=== PATIENT | female | born 1950 | race Caucasian/White ===

== ENCOUNTER 2018-01-04 09:35 | Emergency (ER) | payer MEDICARE ==
[~2018-01-04] VITALS: Ht 162.5 cm; Wt 68.5 kg
[2018-01-04] MEDS ORDERED: PREDNISONE20 M1 PO (09:41)
== END 2018-01-04 09:52 | disposition home or self-care (01) ==
LOC: ED 09:35
DX: L23.7 Allergic contact dermatitis due to plants, except food (principal); Z90.89 Acquired absence of other organs

== ENCOUNTER → 2018-02-10 | Outpatient (CLI) | payer MEDICARE ==
[~2018-02-10] MED LIST: PREDNISONE20 M1 PO
[2018-02-11 05:11] LABS: TOTAL PROTEIN, SERUM 6.2 g/dL (6.0-8.5)
[2018-02-11 08:44] LABS: IMMUNOGLOBULIN G, QNT 661 mg/dL (700-1600); IMMUNOGLOBULIN M, QNT 142 mg/dL (26-217)
[2018-02-13 17:08] LABS: ALBUMIN 4.1 g/dL (2.9-4.4); ALPHA-1-GLOBULIN 0.1 g/dL (0.0-0.4); ALPHA-2-GLOBULIN 0.6 g/dL (0.4-1.0); BETA GLOBULIN 0.7 g/dL (0.7-1.3); GAMMA GLOBULIN 0.6 g/dL (0.4-1.8); GLOBULIN, TOTAL 2.1 g/dL (2.2-3.9); M-SPIKE Not Observed g/dL (Not Observed)
[2018-02-28 16:51] LABS: ACHR (MUSCLE) BINDING AB SEE REFERENCE REPORT; ACHR GANGLIONIC NEURONAL AB SEE REFERENCE REPORT; AMPHIPHYSIN AB SEE REFERENCE REPORT; ANTI-GLIAL/NEUORONAL AB TYPE 1 SEE REFERENCE REPORT; ANTINEURONAL NUCLEAR AB TYPE 2 SEE REFERENCE REPORT; ANTINEURONAL NUCLEAR AB TYPE 3 SEE REFERENCE REPORT; CRMP-5-IGG SEE REFERENCE REPORT; N-TYPE CALCIUM CHANNEL AB SEE REFERENCE REPORT; NEURONAL VGKC AUTOANTIBODY SEE REFERENCE REPORT; P/Q-TYPE CALCIUM CHANNEL AB SEE REFERENCE REPORT; PURKINJE CELL CYTOPLASMIC AB 1 SEE REFERENCE REPORT; PURKINJE CELL CYTOPLASMIC AB 2 SEE REFERENCE REPORT; PURKINJE CELL CYTOPLASMIC AB T SEE REFERENCE REPORT; STRIATIONAL AB SEE REFERENCE REPORT
== END | disposition home or self-care (01) ==
LOC: LAB 13:02
PROVIDERS: Psychiatry & Neurology Neurology
DX: G60.9 Hereditary and idiopathic neuropathy, unspecified (principal)

== ENCOUNTER 2019-02-21 19:00 | Emergency (ER) | payer MEDICARE ==
[~2019-02-21] VITALS: Ht 162.5 cm; Wt 68.0 kg
[2019-02-21] MEDS ORDERED: BENADRYL25 M2 PO (19:13)
== END 2019-02-21 23:36 | disposition home or self-care (01) ==
LOC: ED 19:00
DX: S60.561A Insect bite (nonvenomous) of right hand, initial encounter (principal); Z79.899 Other long term (current) drug therapy; W57.XXXA Bitten or stung by nonvenomous insect and other nonvenomous arthropods, initial encounter; Y93.H2 Activity, gardening and landscaping; Y92.89 Other specified places as the place of occurrence of the external cause; Y99.8 Other external cause status

== ENCOUNTER → 2020-03-27 | Outpatient (CLI) | payer MEDICARE ==
[~2020-03-27] MED LIST changes: +BENADRYL25 M2 PO
== END | disposition home or self-care (01) ==
LOC: COVID19 08:40
PROVIDERS: ATTEND Family Medicine
DX: Z20.828 Contact with and (suspected) exposure to other viral communicable diseases (principal)

== ENCOUNTER 2021-03-27 19:28 | Emergency (ER) | payer MEDICARE ==
[2021-03-27] MEDS ORDERED: KENALOG 0.025%15 GM T (20:08)
== END 2021-03-27 20:06 | disposition home or self-care (01) ==
LOC: ED 19:28
DX: T63.441A Toxic effect of venom of bees, accidental (unintentional), initial encounter (principal); Y92.89 Other specified places as the place of occurrence of the external cause

== ENCOUNTER 2021-07-06 12:54 | Emergency (ER) | payer MEDICARE ==
[~2021-07-06] VITALS: Ht 162.5 cm; Wt 63.5 kg
[~2021-07-06 12:54] MED LIST changes: +KENALOG 0.025%15 GM T
[2021-07-06 13:47] LABS: BASO % 0.4 % (0.0-1.0); EOS # 0.2 10*3/uL (0.0-0.4); EOS % 2.3 % (1.0-4.0); HEMATOCRIT 37.9 % (37.0-47.0); LYMPH # 2.2 10*3/uL (1.3-4.4); LYMPH % 26.5 % (27.0-41.0); MEAN CORPUSCULAR HGB 30.8 pg (27.0-31.0); MEAN CORPUSCULAR HGB CONC 34.6 g/dl (33.0-37.0); MONO # 0.5 10*3/uL (0.1-1.0); MONO % 5.6 % (3.0-9.0); NEUT # 5.3 10*3/uL (2.3-7.9); PLATELET COUNT AUTOMATED 246 10*3/uL (130-400); RED BLOOD COUNT 4.26 10*6/uL (4.10-5.10); RED CELL DISTRI WIDTH 12.5 % (0-14.5); WHITE BLOOD COUNT 8.1 10*3/uL (4.8-10.8)
[2021-07-06 14:01] LABS: ALBUMIN 3.4 gm/dl (3.1-4.5); ALKALINE PHOSPHATASE 95 U/L (45-117); BUN 11 mg/dl (7-24); CHLORIDE 109 mmol/L (98-107); CREATININE 0.65 mg/dL (0.55-1.02); POTASSIUM 3.4 mmol/L (3.5-5.1); SGOT/AST 11 IU/L (3-35); SGPT/ALT 19 U/L (12-78); SODIUM 141 mmol/L (136-145); TOTAL PROTEIN 6.6 gm/dL (6.4-8.2)
== END 2021-07-06 16:13 | disposition home or self-care (01) ==
LOC: ED 12:54
PROVIDERS: Emergency Medicine
DX: R55 Syncope and collapse (principal); Z88.8 Allergy status to other drugs, medicaments and biological substances

== ENCOUNTER → 2021-07-07 | Outpatient (CLI) | payer MEDICARE | END | disposition home or self-care (01) | LOC: COVID19 16:10 | PROVIDERS: ATTEND Internal Medicine | DX: Z11.52 Encounter for screening for COVID-19 (principal) ==

== ENCOUNTER 2022-01-11 14:46 | Emergency (ER) | payer MEDICARE ==
[~2022-01-11] VITALS: Ht 162.5 cm; Wt 63.5 kg
[2022-01-11] MEDS ORDERED: Synthroid,Lev150 MCG PO (15:12)
[2022-01-11] MEDS ORDERED: LAMOTRIGINE150 MG PO (15:12)
[2022-01-11] MEDS ORDERED: OMEPRAZOLE40 MG PO (15:12)
[2022-01-11] MEDS ORDERED: PRISTIQ100 MG PO (15:13)
[2022-01-11] MEDS ORDERED: QUETIAPINE FUM300 M1 PO (15:14)
== END 2022-01-11 19:10 | disposition home or self-care (01) ==
LOC: ED 14:46
DX: S06.0X0A Concussion without loss of consciousness, initial encounter (principal); Z88.8 Allergy status to other drugs, medicaments and biological substances; W22.8XXA Striking against or struck by other objects, initial encounter; Y93.89 Activity, other specified; Y92.89 Other specified places as the place of occurrence of the external cause; Y99.8 Other external cause status

== ENCOUNTER → 2022-06-16 | Outpatient (CLI) | payer MEDICARE ==
[~2022-06-16] MED LIST changes: +LAMOTRIGINE150 MG PO; +OMEPRAZOLE40 MG PO; +PRISTIQ100 MG PO; +QUETIAPINE FUM300 M1 PO; +Synthroid,Lev150 MCG PO
== END | disposition home or self-care (01) ==
LOC: RESCLI 00:25
PROVIDERS: ATTEND Internal Medicine
DX: F32.9 Major depressive disorder, single episode, unspecified (principal); K21.9 Gastro-esophageal reflux disease without esophagitis; E03.9 Hypothyroidism, unspecified; R53.83 Other fatigue; Z90.710 Acquired absence of both cervix and uterus; Z98.890 Other specified postprocedural states; Z90.12 Acquired absence of left breast and nipple; Z88.8 Allergy status to other drugs, medicaments and biological substances; Z79.899 Other long term (current) drug therapy

== ENCOUNTER 2023-01-30 16:19 | Emergency (ER) | payer MEDICARE ==
[~2023-01-30] VITALS: Ht 162.5 cm; Wt 63.5 kg
== END 2023-01-30 16:41 | disposition home or self-care (01) ==
LOC: ED 16:19
DX: S50.862A Insect bite (nonvenomous) of left forearm, initial encounter (principal); Z88.8 Allergy status to other drugs, medicaments and biological substances; Z79.899 Other long term (current) drug therapy; Z90.89 Acquired absence of other organs; W57.XXXA Bitten or stung by nonvenomous insect and other nonvenomous arthropods, initial encounter; Y93.89 Activity, other specified; Y92.89 Other specified places as the place of occurrence of the external cause; Y99.8 Other external cause status

== ENCOUNTER → 2023-08-31 | Outpatient (CLI) | payer MEDICARE | END | disposition home or self-care (01) | LOC: RESCLI 01:10 | PROVIDERS: ATTEND Internal Medicine | DX: E03.9 Hypothyroidism, unspecified (principal); K21.9 Gastro-esophageal reflux disease without esophagitis; F32.9 Major depressive disorder, single episode, unspecified; M25.50 Pain in unspecified joint; I10 Essential (primary) hypertension; Z79.899 Other long term (current) drug therapy; Z88.8 Allergy status to other drugs, medicaments and biological substances; Z98.890 Other specified postprocedural states; Z82.49 Family history of ischemic heart disease and other diseases of the circulatory system ==

== ENCOUNTER 2023-12-05 14:31 | Emergency (ER) | payer MEDICARE ==
[~2023-12-05] VITALS: Ht 162.5 cm; Wt 65.8 kg
[2023-12-05] MEDS ORDERED: TRAMADOL HCL50 MG PO (17:12)
== END 2023-12-05 17:27 | disposition home or self-care (01) ==
LOC: ED 14:31
DX: S82.832A Other fracture of upper and lower end of left fibula, initial encounter for closed fracture (principal); Z98.890 Other specified postprocedural states; W22.01XA Walked into wall, initial encounter; Y93.89 Activity, other specified; Y92.89 Other specified places as the place of occurrence of the external cause; Y99.8 Other external cause status; Z88.8 Allergy status to other drugs, medicaments and biological substances

== ENCOUNTER 2024-04-30 16:03 | Emergency (ER) | payer MEDICARE ==
[~2024-04-30] VITALS: Ht 162.5 cm; Wt 65.8 kg
[~2024-04-30 16:03] MED LIST changes: +TRAMADOL HCL50 MG PO
[2024-04-30] MEDS ORDERED: SODIUM CHLORIDE 0.9% 1,000 ML IV ONE (18:15)
[2024-04-30 18:47] LABS: BUN 7 mg/dl (9-23); CHLORIDE 101 mmol/L (98-107); POTASSIUM 3.5 mmol/L (3.4-5.1)
[2024-04-30 19:02] LABS: BASO # 0.1 10*3/uL (0.0-0.1); BASO % 1.3 % (0.0-1.0); EOS # 0.1 10*3/uL (0.0-0.4); EOS % 1.6 % (1.0-4.0); HEMATOCRIT 33.5 % (37.0-47.0); LYMPH # 4.6 10*3/uL (1.3-4.4); LYMPH % 68.2 % (27.0-41.0); MEAN CELL VOLUME 85.2 fl (81.0-99.0); MEAN CORPUSCULAR HGB 30.5 pg (27.0-31.0); MEAN CORPUSCULAR HGB CONC 35.8 g/dl (33.0-37.0); MEAN PLATELET VOLUME 10.6 fl (9.6-12.3); MONO # 0.6 10*3/uL (0.1-1.0); MONO % 8.3 % (3.0-9.0); NEUT # 1.4 10*3/uL (2.3-7.9); NEUT % 20.2 % (47.0-73.0); PLATELET COUNT AUTOMATED 106 10*3/uL (130-400); RED BLOOD COUNT 3.93 10*6/uL (4.10-5.10); WHITE BLOOD COUNT 6.7 10*3/uL (4.8-10.8)
[2024-04-30 19:39] LABS: ATYPICAL LYMPHS 8 % (0-0); BASOPHILS 1 % (0-1); BURR CELLS FEW; PLATELET SUFFICIENCY LOW (NORMAL); TOTAL CELLS COUNTED 100 #CELLS
[2024-04-30 19:40] LABS: ROULEAUX SLIGHT
== END 2024-04-30 20:13 | disposition home or self-care (01) ==
LOC: ED 16:03
PROVIDERS: Internal Medicine
DX: B34.9 Viral infection, unspecified (principal); E87.1 Hypo-osmolality and hyponatremia; R11.0 Nausea; R53.1 Weakness; Z88.8 Allergy status to other drugs, medicaments and biological substances; Z98.890 Other specified postprocedural states

== ENCOUNTER → 2024-08-23 | Outpatient (CLI) | payer MEDICARE | END | disposition home or self-care (01) | LOC: RESCLI 04:12 | PROVIDERS: ATTEND Internal Medicine | DX: F32.9 Major depressive disorder, single episode, unspecified (principal); E03.9 Hypothyroidism, unspecified; K21.9 Gastro-esophageal reflux disease without esophagitis; M25.50 Pain in unspecified joint; N89.8 Other specified noninflammatory disorders of vagina; Z88.8 Allergy status to other drugs, medicaments and biological substances; Z98.890 Other specified postprocedural states; Z90.710 Acquired absence of both cervix and uterus; F10.90 Alcohol use, unspecified, uncomplicated; Z79.899 Other long term (current) drug therapy; Y90.9 Presence of alcohol in blood, level not specified ==

== ENCOUNTER 2024-11-27 10:57 | Emergency (ER) | payer MEDICARE ==
[~2024-11-27] VITALS: Ht 162.5 cm; Wt 63.5 kg
== END 2024-11-27 14:03 | disposition home or self-care (01) ==
LOC: ED 10:57
DX: S32.049A Unspecified fracture of fourth lumbar vertebra, initial encounter for closed fracture (principal); E03.9 Hypothyroidism, unspecified; Z85.3 Personal history of malignant neoplasm of breast; Z88.8 Allergy status to other drugs, medicaments and biological substances; Z79.899 Other long term (current) drug therapy; Z98.890 Other specified postprocedural states; W18.09XA Striking against other object with subsequent fall, initial encounter; Y93.89 Activity, other specified; Y92.89 Other specified places as the place of occurrence of the external cause; Y99.8 Other external cause status